=== PATIENT | male | born 1925 | race Caucasian/White ===

== ENCOUNTER → 2016-07-02 | Outpatient (REF) | payer MEDICARE, OTHER ==
[~2016-07-02] MED LIST: ADV250INH INH; ASPI325T PO; ASPI81TA85 PO; CARD1TAB4 PO; CHLO125TA PO; COMBAER6 INH; CRES40TA PO; DAY-LIQ6 PO; DOXA1TAB42 PO; ELIQ2.5T PO; FLOM5CAP PO; HYDR-3781 PO; HYDR12.55 PO; MULTTAB23 PO; NIFE15CA PO; PRIM50TA6 PO; PROP80TA PO; PROS5TAB PO
[2016-07-02 12:02] LABS: MEAN CORPUSCULAR HEMOGLOBIN 29.1 pg (27.0-33.0); MEAN CORPUSCULAR HGB CONC 32.2 g/dl (32.0-36.5); MEAN CORPUSCULAR VOLUME 90.4 fl (80.0-96.0); RED CELL DISTRIBUTION WIDTH 16.2 % (11.5-14.5); WHITE BLOOD COUNT 6.8 K/mm3 (4.0-10.0)
[2016-07-02 13:20] LABS: ALBUMIN 3.1 GM/DL (3.2-5.2); ALBUMIN/GLOBULIN RATIO 0.91 (1.00-1.93); ALKALINE PHOSPHATASE 62 U/L (45-117); ALT/SGPT 39 U/L (12-78); ANION GAP 9 MEQ/L (8-16); AST/SGOT 34 U/L (15-37); BILIRUBIN,TOTAL 0.3 MG/DL (0.2-1.0); BLOOD UREA NITROGEN 18 MG/DL (7-18); CALCIUM LEVEL 8.9 MG/DL (8.8-10.2); CARBON DIOXIDE LEVEL 25 MEQ/L (21-32); CHLORIDE LEVEL 108 MEQ/L (98-107); CHOLESTEROL LEVEL 160 MG/DL (<200); CREATININE FOR GFR 0.85 MG/DL (0.70-1.30); FERRITIN 37 NG/ML (26-388); FREE T4 0.96 NG/DL (0.76-1.46); GLOMERULAR FILTRATION RATE > 60.0 (>35); GLUCOSE, FASTING 130 MG/DL (83-110); PERCENT SATURATION 14.3 % (19.7-37.4); POTASSIUM SERUM 4.1 MEQ/L (3.5-5.1); SODIUM LEVEL 142 MEQ/L (136-145); TOTAL IRON BINDING CAPACITY 280 UG/DL (250-450); TOTAL PROTEIN 6.5 GM/DL (6.4-8.2); TRIGLYCERIDES LEVEL 108 MG/DL (<150)
== END ==
LOC: M SFHCPLAZ 08:28
PROVIDERS: ATTEND Physician Assistant
DX: D50.9 Iron deficiency anemia, unspecified (principal); E78.4 Other hyperlipidemia; E11.9 Type 2 diabetes mellitus without complications

== ENCOUNTER 2016-07-17 21:30 | Emergency (ER) | payer MEDICARE, OTHER ==
[~2016-07-17] VITALS: Ht 177.8 cm; Wt 82.1 kg
[2016-07-17] MEDS ORDERED: COUM1TAB17 PO (21:48)
[2016-07-17] MEDS ORDERED: ASPIRIN 325 MG TAB PO ONE (22:30)
[2016-07-17 22:37] LABS: BASO % 0.6 % (0.0-1.0); EOS # 0.2 K/mm3 (0.0-0.50); EOS % 3.8 % (0.0-3.0); LARGE UNSTAINED CELL # 0.1 K/mm3 (0.0-0.4); LARGE UNSTAINED CELL % 1.9 % (0.0-4.0); LYMPH # 1.4 K/mm3 (1.5-4.5); LYMPH % 21.3 % (24.0-44.0); MEAN CORPUSCULAR HEMOGLOBIN 28.8 pg (27.0-33.0); MEAN CORPUSCULAR HGB CONC 31.8 g/dl (32.0-36.5); MEAN CORPUSCULAR VOLUME 90.7 fl (80.0-96.0); MONO # 0.3 K/mm3 (0.0-0.8); MONO % 4.4 % (0.0-5.0); NEUTROPHILS % 68.1 % (36.0-66.0); PLATELET COUNT, AUTOMATED 166 k/mm3 (150-450); RED CELL DISTRIBUTION WIDTH 16.1 % (11.5-14.5); WHITE BLOOD COUNT 5.9 K/mm3 (4.0-10.0)
[2016-07-17 22:39] LABS: INR 1.28
[2016-07-17 22:49] LABS: ANION GAP 4 MEQ/L (8-16); BLOOD UREA NITROGEN 15 MG/DL (7-18); CARBON DIOXIDE LEVEL 28 MEQ/L (21-32); CHLORIDE LEVEL 106 MEQ/L (98-107); CREATININE FOR GFR 0.89 MG/DL (0.70-1.30); GLOMERULAR FILTRATION RATE > 60.0 (>35); GLUCOSE, FASTING 111 MG/DL (83-110); SODIUM LEVEL 138 MEQ/L (136-145)
[2016-07-18 04:23] VITALS: BP 147/68
--- NOTE | 2016-07-18 07:27 | ECGEPIP ---
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
--- NOTE | 2016-07-18 07:29 | ECGEPIP ---
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
--- NOTE | 2016-07-18 08:41 | REP ---
PA and lateral chest: Comparisons are the PA and lateral chest of 01/09/2059, portable chest day 04/03/2015. There is chronic cardiomegaly and dual chamber pacemaker, unchanged. The right costophrenic angle is effaced suggestive of a right pleural effusion, not present previously. There are no focal infiltrates. The keenna, mediastinum, and bony thorax are unchanged. Impression: Findings are compatible with a new right pleural effusion. There is chronic cardiomegaly and dual chamber pacemaker. Signed by Ivan Mckeon MD 07/18/2016 08:33 A
--- NOTE | 2016-07-18 18:32 | ED PDOC ---
Post-Departure Follow-Up dr stone faxed formal report of cx for fu Kurt Strickland MD Jul 18, 2016 18:32
== END 2016-07-18 04:24 | disposition home or self-care (01) ==
LOC: M ED 22:24
DX: R07.9 Chest pain, unspecified (principal); I10 Essential (primary) hypertension; E78.5 Hyperlipidemia, unspecified; Z86.73 Personal history of transient ischemic attack (TIA), and cerebral infarction without residual deficits; N40.0 Benign prostatic hyperplasia without lower urinary tract symptoms; Z87.891 Personal history of nicotine dependence; Z79.899 Other long term (current) drug therapy; Z79.01 Long term (current) use of anticoagulants

== ENCOUNTER → 2016-08-06 | Outpatient (CLI) | payer MEDICARE, OTHER ==
[~2016-08-06] MED LIST changes: +COUM1TAB17 PO; +ISOVUE-370 76% 100ML VIAL (Q9967) As Ordered ONE
--- NOTE | 2016-08-06 19:48 | REP ---
CT CHEST WITH CONTRAST: 08/06/2016. Clinical history: Right pleural effusion. Comparison: Chest x-ray 07/17/2016, CT angio chest 01/06/2015. Technique. The patient should bolus of 75 mL of Isovue 370 scanning through the chest with coronal and sagittal reconstructions. Findings: The lungs are hyperinflated. There is bullous emphysematous change in the mid upper lung zone moderately severe to severe scattered bullae in the lower lungs. Fibrotic changes in both lower lobes right greater than left. Some cylindrical bronchiectasis noted in the lower lung zones. Dependent atelectatic changes are noted and some subpleural fibrotic changes posteriorly mid and lower lung zones and into the deep sulcus. Small pleural effusions are noted bilaterally, right slightly greater than left. There is a dual lead pacer over the left upper chest with leads in the right atrium and ventricle. Heart size mildly prominent with left atrial and ventricular enlargement with the right atrium also mildly prominent. No pericardial thickening or effusion. There is calcifications in the aorta without dissection or aneurysm. The main right and left pulmonary arteries and the mediastinum are without filling defects. There are centimeter and subcentimeter sized nodes right hilum and paratracheal and multiple sub-centimeter nodes, precarinal, AP window, and in the prevascular space. There are degenerative changes in the spine with marginal osteophytes at the cervical thoracic junction. No acute wedge compression deformity of destructive lesion. The sternum and manubrium unremarkable. Medial clavicles to the AC joints intact. AC joint degenerative changes of the glenohumeral joints without fracture, subluxation. There are degenerative changes of both shoulders. Scapular ribs and rib articulations all intact. In the upper abdomen there is no definite hiatal hernia. That portion of liver and spleen included were unremarkable. No splenomegaly. There are a few calcified stones in the gallbladder. No biliary dilatation. Adrenal glands are normal. Upper poles of kidneys intact. That portion of colon included is also unremarkable. Impression: 1. 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 Most of fibrosis subpleural or idiopathic . I do not see consolidation or acute infiltrate. Some cylindrical bronchiectasis seen. 2. Small bilateral effusions. 3. Cardiomegaly with left and right atrial enlargement with left ventricular enlargement. No pericardial effusion or thickening. 4. Periaortic aneurysm or dissection and no pathologic sized mediastinal or hilar adenopathy. Stable exam. Signed by Nhan Elena MD 08/07/2016 10:19 A
== END ==
LOC: M RAD 14:15
PROVIDERS: ATTEND Physician Assistant
DX: J90 Pleural effusion, not elsewhere classified (principal); J44.9 Chronic obstructive pulmonary disease, unspecified; I51.7 Cardiomegaly
CPT/HCPCS: 71260; Q9967

== ENCOUNTER → 2016-10-14 | Outpatient (REF) | payer MEDICARE, OTHER ==
[~2016-10-14] MED LIST changes: -ISOVUE-370 76% 100ML VIAL (Q9967) As Ordered ONE
[2016-10-14 11:30] LABS: MEAN CORPUSCULAR HEMOGLOBIN 31.3 pg (27.0-33.0); RED CELL DISTRIBUTION WIDTH 14.1 % (11.5-14.5); WHITE BLOOD COUNT 7.4 K/mm3 (4.0-10.0)
[2016-10-14 13:54] LABS: ALBUMIN 3.4 GM/DL (3.2-5.2); ALBUMIN/GLOBULIN RATIO 0.85 (1.00-1.93); ALKALINE PHOSPHATASE 66 U/L (45-117); ALT/SGPT 32 U/L (12-78); ANION GAP 9 MEQ/L (8-16); AST/SGOT 32 U/L (15-37); BILIRUBIN,TOTAL 0.3 MG/DL (0.2-1.0); BLOOD UREA NITROGEN 17 MG/DL (7-18); CALCIUM LEVEL 8.8 MG/DL (8.8-10.2); CARBON DIOXIDE LEVEL 25 MEQ/L (21-32); CHLORIDE LEVEL 106 MEQ/L (98-107); CREATININE FOR GFR 0.81 MG/DL (0.70-1.30); GLOMERULAR FILTRATION RATE > 60.0 (>35); GLUCOSE, FASTING 102 MG/DL (83-110); POTASSIUM SERUM 3.9 MEQ/L (3.5-5.1); SODIUM LEVEL 140 MEQ/L (136-145); TOTAL PROTEIN 7.4 GM/DL (6.4-8.2)
== END ==
LOC: M SFHCPLAZ 08:57
PROVIDERS: ATTEND Physician Assistant
DX: J90 Pleural effusion, not elsewhere classified (principal); D50.9 Iron deficiency anemia, unspecified; I48.91 Unspecified atrial fibrillation

== ENCOUNTER 2016-12-01 08:33 | Emergency (ER) | payer MEDICARE, OTHER ==
[~2016-12-01] VITALS: Ht 177.8 cm; Wt 79.0 kg
[2016-12-01 10:35] VITALS: BP 146/82
== END 2016-12-01 10:40 | disposition home or self-care (01) ==
LOC: M ED 08:33
DX: H61.23 Impacted cerumen, bilateral (principal); E11.9 Type 2 diabetes mellitus without complications; J44.9 Chronic obstructive pulmonary disease, unspecified; I48.91 Unspecified atrial fibrillation; D64.9 Anemia, unspecified; Z86.73 Personal history of transient ischemic attack (TIA), and cerebral infarction without residual deficits; N40.0 Benign prostatic hyperplasia without lower urinary tract symptoms; R25.1 Tremor, unspecified; F17.210 Nicotine dependence, cigarettes, uncomplicated

== ENCOUNTER 2017-01-05 13:38 | Emergency (ER) | payer MEDICARE, OTHER ==
[~2017-01-05] VITALS: Ht 177.8 cm; Wt 77.7 kg
[2017-01-05 15:02] LABS: BASO % 0.6 % (0.0-1.0); EOS # 0.1 10^3/uL (0.0-0.50); EOS % 1.1 % (0.0-3.0); IMMATURE GRANULOCYTE % 0.6 % (0-0); LYMPH % 16.7 % (24.0-44.0); MEAN CORPUSCULAR HEMOGLOBIN 30.5 pg (27.0-33.0); MEAN CORPUSCULAR VOLUME 92.2 fl (80.0-96.0); MONO # 0.4 10^3/uL (0.0-0.8); MONO % 6.2 % (0.0-5.0); NEUTROPHILS # 4.6 10^3/uL (1.8-7.7); NEUTROPHILS % 74.8 % (36.0-66.0); PLATELET COUNT, AUTOMATED 195 10^3/uL (150-450); WHITE BLOOD COUNT 6.2 10^3/uL (4.0-10.0)
[2017-01-05 15:15] LABS: INR 2.31
--- NOTE | 2017-01-05 15:42 | REP ---
CT Head without contrast HISTORY: Trauma COMPARISON: 04/03/2015 An area of decreased attenuation is present in the left cerebellum. This represents an old infarction. Areas of decreased attenuation are present in the periventricular and subcortical white matter. This represents small-vessel ischemic disease. There is no intraparenchymal hemorrhage, acute infarct, mass or midline shift. The ventricular system and cortical sulci are dilated consistent with moderate volume loss. There is no extra cerebral collection. There is no fracture. The visualized sinuses are clear. IMPRESSION: 1. Old left cerebellar infarction. 2. Small vessel ischemic disease. 3. Moderate volume loss. Signed by Gilbert Angel MD 01/05/2017 03:33 P
--- NOTE | 2017-01-05 16:04 | REP ---
MAXILLOFACIAL CT WITHOUT CONTRAST: HISTORY: Trauma. The sinuses are clear. The osteomeatal units are patent. The middle and inferior nasal turbinates are partially paradoxical. There is minimal deviation of the nasal septum to the right. The cribriform plate, medial rosales of the orbits and optic canals are intact. The carotid canals form a segment of the posterolateral rosales of the sphenoid sinus. Degenerative change is present in the temporomandibular joints. There is no fracture. IMPRESSION: There is no acute or chronic sinusitis. Signed by Gilbert Angel MD 01/05/2017 04:10 P
--- NOTE | 2017-01-05 16:05 | REP ---
CT CERVICAL SPINE WITHOUT CONTRAST: HISTORY: Trauma. There is no acute fracture. Disc bulges with associated osteophyte formation are present at the C3-4 through C6-7 levels. There is minimal narrowing of the spinal canal. Uncinate process and/or facet hypertrophy are present at the C2-3 through C7-T1 levels. These findings produce minimal to severe narrowing of the neural foramina. The C2-3 through C7-T1 intervertebral discs are decreased in height consistent with disc degeneration. There are 2 mm of anterior subluxation of C4 on C5, C6 on C7 and C7 on T1. Bullae and scarring are present in the lung apices. IMPRESSION: 1. There is no acute fracture. 2. There is cervical spondylosis at the C2-3 through C7-T1 levels. Signed by Gilbert Angel MD 01/05/2017 04:08 P
[2017-01-05 16:51] VITALS: BP 142/84
== END 2017-01-05 16:52 | disposition home or self-care (01) ==
LOC: M ED 13:38
DX: S00.83XA Contusion of other part of head, initial encounter (principal); W50.0XXA Accidental hit or strike by another person, initial encounter; Y92.039 Unspecified place in apartment as the place of occurrence of the external cause; Y93.9 Activity, unspecified; Y99.9 Unspecified external cause status; I10 Essential (primary) hypertension; N40.0 Benign prostatic hyperplasia without lower urinary tract symptoms; R25.1 Tremor, unspecified; Z87.891 Personal history of nicotine dependence; M47.812 Spondylosis without myelopathy or radiculopathy, cervical region; M47.813 Spondylosis without myelopathy or radiculopathy, cervicothoracic region; Z86.73 Personal history of transient ischemic attack (TIA), and cerebral infarction without residual deficits; I67.9 Cerebrovascular disease, unspecified; Z79.01 Long term (current) use of anticoagulants; Z79.899 Other long term (current) drug therapy

== ENCOUNTER → 2017-03-03 | Outpatient (CLI) | payer MEDICARE, OTHER ==
[2017-03-03 10:27] LABS: MEAN CORPUSCULAR HEMOGLOBIN 30.8 pg (27.0-33.0); MEAN CORPUSCULAR HGB CONC 33.6 g/dl (32.0-36.5); MEAN CORPUSCULAR VOLUME 91.9 fl (80.0-96.0); PLATELET COUNT, AUTOMATED 186 10^3/uL (150-450); RED CELL DISTRIBUTION WIDTH 13.9 % (11.5-14.5)
[2017-03-03 10:54] LABS: ALBUMIN 3.3 GM/DL (3.2-5.2); ALKALINE PHOSPHATASE 65 U/L (45-117); ALT/SGPT 36 U/L (12-78); ANION GAP 10 MEQ/L (8-16); AST/SGOT 31 U/L (7-37); BILIRUBIN,TOTAL 0.3 MG/DL (0.2-1.0); BLOOD UREA NITROGEN 17 MG/DL (7-18); CALCIUM LEVEL 8.6 MG/DL (8.8-10.2); CARBON DIOXIDE LEVEL 22 MEQ/L (21-32); CHLORIDE LEVEL 108 MEQ/L (98-107); CREATININE FOR GFR 0.76 MG/DL (0.70-1.30); GLOMERULAR FILTRATION RATE > 60.0 (>35); GLUCOSE, FASTING 99 MG/DL (83-110); SODIUM LEVEL 140 MEQ/L (136-145); TOTAL PROTEIN 7.4 GM/DL (6.4-8.2)
== END ==
LOC: M LAB 09:34
PROVIDERS: ATTEND Physician Assistant
DX: E11.9 Type 2 diabetes mellitus without complications (principal)